=== PATIENT | male | born 1975 | race Two or more races ===

== ENCOUNTER 2022-09-20 22:41 | Emergency (ER) | payer OTHER ==
[~2022-09-20] VITALS: Ht 175.3 cm; Wt 73.5 kg
[2022-09-21] MEDS ORDERED: DICLOFENAC SODI75 MG PO (03:26)
== END 2022-09-21 04:29 | disposition home or self-care (01) ==
LOC: ER 22:41
DX: N50.812 Left testicular pain (principal); R10.9 Unspecified abdominal pain